=== PATIENT | male | born 1960 | race Caucasian/White ===

== ENCOUNTER 2019-05-04 03:34 | Inpatient (IN) | payer OTHER ==
[~2019-05-04] VITALS: Ht 172.7 cm; Wt 99.1 kg
[2019-05-04 03:37] VITALS: Ht 172.7 cm; Wt 99.1 kg
--- NOTE | 2019-05-04 03:58 | NUR ---
PT BIB SELF FOR C/O RLQ ABD PAIN. PT STS HE HAS A HISTORY OF SMALL BOWEL OBSTRUCTIONS AND REPORTS THE PAIN FEELS THE SAME. PT STS HIS LAST OBSTRUCTION WAS 3 YEARS AGO. PT REPORTS NAUSEA BUT NO VOMTITING. PT IS A/O X4. PT RESPS ARE E/U. PT IS ABLE TO AMBULATE WITH STEADY GAIT FROM ED LOBBY TO BED 4. AWAITING MSE
--- NOTE | 2019-05-04 04:33 | NUR ---
PT MEDICATED PER EMAR ORDERS. SEE ORDERS. PT PLACED ON ALL MONITORS. NO ACD NOTED
--- NOTE | 2019-05-04 04:40 | NUR ---
PT TAKEN TO CT VIA ED WHEELCHAIR BY TECH
[2019-05-04 04:44] LABS: BASOPHIL % 0.2 % (0-2); PLATELET COUNT 215 x10^3mcL (130-400); RED CELL DISTRIBUTION WIDTH 13.6 % (11.5-14.5)
--- NOTE | 2019-05-04 04:47 | NUR ---
PT RETURNED FROM CT WITH NO INCIDENCE
[2019-05-04 04:48] LABS: CALCIUM 9.2 mg/dL (8.5-10.1); CARBON DIOXIDE 25.5 mmol/L (21-32); CHLORIDE SERUM 104 mmol/L (98-107); GFR1 > 60 mL/min; GLUCOSE SERUM 135 mg/dL (74-106); POTASSIUM SERUM 4.4 mmol/L (3.5-5.1); SODIUM SERUM 139 mmol/L (136-145)
[2019-05-04 04:53] LABS: ALBUMIN 4.1 g/dL (3.4-5.0); ALKALINE PHOSPHATASE 72 U/L (46-116); ALT/SGPT 73 U/L (16-63); AST/SGOT 57 U/L (15-37); BILIRUBIN TOTAL 0.72 mg/dL (0.20-1.00); TOTAL PROTEIN, SERUM 8.2 g/dL (6.4-8.2)
[2019-05-04 05:10] LABS: LIPASE 133 IU/L (73-393)
--- NOTE | 2019-05-04 05:59 | NUR ---
PT MEDICATED PER EMAR ORDERS. PT STS " PLEASE STOP THE MEDICINE" WHILE PUSHING THE MORPHINE. PT ONLY RECIEVED 2 MG OF 4MG ORDER. PT PLACED IN TRANSDELUMBERG POSITION. PT IS ON ALL MONITORS. MADE AWARE
--- NOTE | 2019-05-04 06:11 | NUR ---
PORTABLE XRAY AT BEDSIDE TO COMFIRM PLACEMENT OF NGTUBE
--- NOTE | 2019-05-04 06:19 | NUR ---
PT REPORTS NO PAIN AT THIS TIME. PT VS ARE WITHIN NORMAL LIMITS. PT IS ABLE TO ANSWER ALL QUESTIONS APPROPRIATELY. PT IS A/O X4. PT RESPS ARE E/U. VISIBLE TRUNG CHEST RISE AND FALL NOTED. PT AT BEDSIDE. NO ACD NOTED
[2019-05-04] MEDS ORDERED: LIPI10 PO (06:29)
--- NOTE | 2019-05-04 07:10 | NUR ---
REPORT RECEIVED FROM WENDI CALDERON
--- NOTE | 2019-05-04 07:17 | NUR ---
GAVE PT REPORT TO DINORA ADAME, HE WILL NOW ASSUME PRIMARY CARE FOR THE PT
--- NOTE | 2019-05-04 07:22 | NUR ---
PATIENT RESTING AT BEDSIDE IN NAD
--- NOTE | 2019-05-04 07:37 | NUR ---
REPORT GIVEN TO WENDI FLORES
--- NOTE | 2019-05-04 07:50 | NUR ---
RECEIVED PT FROM ED VIA WU. C/O OF RLQ ABD. PAIN X1 DAY SINCE 6PM YESTERDAY WITH INTERMITTENT N/V. NGT TO RIGHT NARE. ABDOMEN ROUND/DISTENDED. BOWEL SOUNDS HYPOACTIVE. REPORTS LAST BM YESTERDAY, DESCRIBES HARD/FORMED. AA/OX4. FOLLOWS COMPLEX COMMANDS, RESPONDS TO VERBAL STIMULI. FACE SYMMETRICAL. SPEECH CLEAR. NO S/S OF ACUTE DISTRESS. MED-SURG. NPO (STRICT), NO SOB ON 2LNC. O2 SAT 100%. RR EVEN/UNLABORED. DENIES CHEST PAIN. CALM/COOPERATIVE. INSTRUCTED TO USE CALL LIGHT TO CALL FOR ASSISTANCE PRN. VERBALIZED UNDERSTANDING. BED IN LOW POSITION. CALL LIGHT WITHIN REACH. ORIENTED TO SURROUNDINGS. HOB ELEVATED. SUCTION AT BEDSIDE. WILL CONTINUE TO MONITOR.
[2019-05-04 08:28] VITALS: BP 145/95
--- NOTE | 2019-05-04 08:41 | NUR ---
RECEIVED TELEPHONE ORDERS FROM DR. ROMAN FOR NGT LOW-INTERMITTENT SUCTION AFTER SMALL BOWEL FOLLOW THROUGH IS COMPLETE. ALSO RECEIVED ORDER TO D/C SUBLIMAZE AND ORDER FOR TYLENOL 1000MG IVP Q 6HRS PRN, PHARMACY UNABLE TO VERIFY D/T UNAVAILABLE. PT DENIES PAIN AT THIS TIME. WILL CONTACT DR. ROMAN FOR ALTERNATE PAIN MEDICATION/MANAGEMENT.
--- NOTE | 2019-05-04 08:54 | NUR ---
PT TAKEN FOR SM. BOWEL FOLLOW THROUGH BY WHEELCHAIR. NO S/S OF ACUTE DISTRESS. NO N/V AT THIS TIME. NO COMPLAINT OF PAIN. VOID X1, OUTPUT 300CC CLEAR/YELLOW. IV WNL TO LAC, SALINE LOCKED.
--- NOTE | 2019-05-04 10:26 | NUR ---
PT BACK FROM SMALL BOWEL FOLLOW THROUGHT. PT EDUCATION PROVIDED: STRICT NPO, REMAIN UPRIGHT WITH HOB ELEVATED. VERBALIZED UNDERSTANDING. AA/OX4. COMPLAINT OF NAUSEA, GIVEN MED IVP. SEE NOV. NGT TO RIGHT NARE NOT CONNECTED TO SUCTION AT THIS TIME D/T SMALL BOWEL FOLLOW THROUGH. BED IN LOW POSITION. CALL LIGHT WITHIN REACH. WILL CONTINUE TO MONITOR.
[2019-05-04 12:07] VITALS: BP 152/93
--- NOTE | 2019-05-04 12:43 | NUR ---
RECEIVED PATIENT ALEXEY. PATIENT LAYING RIGHT SIDE IN BED A/O X4 ON 2L NC, NG TUBE PRESENT TO RIGHT NARE. PATIENT COMPLAINING OF SLIGHT NAUSEA. INSTRUCTED PATIENT TO SIT UP HIGHER IN BED DUE TO SB FOLLOW THROUGH. AWAITING FOLLOW UP XRAY FOR SMALL BOWEL FOLLOW THROUGH. CALL IGHT WITHIN REACH, FAMILY AT BEDSIDE. BED IN LOWEST POSITION
--- NOTE | 2019-05-04 13:18 | NUR ---
PATIENT VOMITED X1, LIGHT GREEN COLOR APPROX 5O MLS. PATIENT SITTING UP AT SIDE OF BED COMPLAINING OF NAUSEA AT THIS TIME. RADIOLOGY WAS CALLED AND XRAY WAS TAKEN, PER RECEP THE CONTRAST HAS MOVED THOUGH THE STOMACH AND FOLLOW UP XRAY IS STILL SCHEDULED FOR 1499. MEDICATED PATIENT WITH REGLAN PER NOV. ENCOURAGED TO REMAIN SITTING UP AT SIDE OF BED TO PROMOTE GASTRIC MOBILITY. CALL LIGHT WITHIN REACH, WILL CONTINUE TO MONITOR
--- NOTE | 2019-05-04 15:46 | NUR ---
PATIENT VOMITED X1 APPORX 200ML. MEDICATED WITH ZOFRAN. XRAYS HAD BEEN TAKEN FOR FINAL SMO FOLLOWUP. PATIENT CONNECTED TO LIS. PATIENT REPORTING DECREASE IN NAUSEA. WILL CONTINUE TO MONITOR. CALL LIGHT WITHIN REACH
[2019-05-04 16:23] VITALS: BP 138/97
--- NOTE | 2019-05-04 18:02 | NUR ---
PATIENT SEEN BY DR ROMAN AND UPDATED ON PLAN OF CARE. INSTRUCTED PATIENT TO ALERT STAFF OF SIGNS ON PAIN THIS COULD MEAN NEED FOR SURGERY. DR MEDINA LEFT PHONE NUMBER WITH STAFF ASKING TO BE KEPT UPDATED TO RESULTS TO LABS AND IF PATIENT IS FEELING PAIN. PATIENT STABLE AT THIS TIME WILL ENDORSE TO NIGHT NURSE
[2019-05-04 18:10] LABS: PLATELET COUNT 227 x10^3mcL (130-400); RED CELL DISTRIBUTION WIDTH 13.9 % (11.5-14.5)
[2019-05-04 18:12] LABS: BASOPHIL % 0 % (0-2)
--- NOTE | 2019-05-04 18:45 | NUR ---
UPDATED DR MEDINA ON LAB RESULTS. REPORTED THAT PATIENT IS AFEBRILE AND HR NOT ELEVATED. DR MEDINA ASKED TO MONITOR PATIENT AND REPORT IF THERE IS A CHANGE IN PATIENT VITAL SIGNS. WILL ENDORSE TO NIGHT NURSE
--- NOTE | 2019-05-04 19:32 | NUR ---
RECEIVED PT FROM PREVIOUS SHIFT. PT A/OX4. DENIES PAIN. DENIES SOB ON 2LNC. IV PATENT AND INFUSING D5 1/2NS AT 100ML/HR WITH NO S/S OF INFILTRATION. NGT TO LIS WITH BILE-COLORED OUTPUT. CALL LIGHT WITHIN REACH, BED IN LOW POSITION. WILL CONTINUE TO MONITOR,
[2019-05-04 20:50] VITALS: BP 153/97
--- NOTE | 2019-05-04 21:28 | NUR ---
NG TUBE CANISTER AND TUBING CHANGED AT THIS TIME. LOW INTERMITTENT SUCTION RESUMED.
--- NOTE | 2019-05-05 02:39 | NUR ---
PT RESTING IN NO ACUTE DISTRESS. RR EVEN AND UNLABORED. IV PATENT. CALL LIGHT WITHIN REACH, BED IN LOW POSITION. WILL CONTINUE TO MONITOR.
[2019-05-05 06:05] VITALS: BP 132/84
[2019-05-05 06:56] LABS: BASOPHIL % 0.1 % (0-2); PLATELET COUNT 228 x10^3mcL (130-400); RED CELL DISTRIBUTION WIDTH 13.7 % (11.5-14.5)
[2019-05-05 07:14] LABS: CARBON DIOXIDE 25.1 mmol/L (21-32); CHLORIDE SERUM 104 mmol/L (98-107); CREATININE SERUM 0.8 mg/dL (0.7-1.3); GFR1 > 60 mL/min; GLUCOSE SERUM 168 mg/dL (74-106); POTASSIUM SERUM 4.1 mmol/L (3.5-5.1); SODIUM SERUM 141 mmol/L (136-145)
--- NOTE | 2019-05-05 07:15 | NUR ---
SEEN IN BED AAOX4. NO RESP DISTRESS NOTED. BREATHING ON O2 2LPM N/C. DENIES ABDN PAIN STATED MILDLY NAUSEA. ABDN NOTED DISTENDED AND TENDER. STATED NO BM JUST BURPING. NGT TO RIGHT NARE TO LIS NOTED GREENISH GI CONTENT. KEPT NPO. IVF D5 1/2NS AT 100ML/HR TO LAC INFUSING WELL. CALL LIGHT PLACED WITHIN EASY REACH. SIDERAILS UP X2.
--- NOTE | 2019-05-05 07:55 | NUR ---
DOCTOR ADAM AT BEDSIDE FOR AM ROUND. PATIENT MADE AWARE OF PLAN OF CARE AND CURRENT CONDITION.
[2019-05-05 08:04] VITALS: BP 136/76
--- NOTE | 2019-05-05 08:20 | NUR ---
DOCTOR MERCY AT BEDSIDE DISCUSSED PLAN OF CARE AND MADE PATIENT AWARE OF CURRENT CONDITION. PATIENT AND HIS SPOUSE VERBALIZED UNDERSTANDING.
--- NOTE | 2019-05-05 08:57 | NUR ---
DISCONNECTED NGT TO LIS PRIOR TO PATIENT AMBULATTION ON THE HALLWAY. SPOUSE AND SON AT BEDSIDE.
[2019-05-05 11:51] VITALS: BP 123/63
[2019-05-05 16:25] VITALS: BP 142/93
--- NOTE | 2019-05-05 18:55 | NUR ---
NO ANY DISTRESS THROUGHOUT SHIFT. V/S STABLE, O2SAT 94% ON ROOM AIR. ENCURAGED TO AMBULATE, PATIENT MADE AWARE STATED WILL WALK ON THE HALLWAY AGAIN WHEN HIS SPOUSE GET HERE. NGT TO LIS 350 GREENISH GI CONTENT OUTPUT THROUGHOUT SHIFT. VOMITED X2, REFUSED ZOFRAN OFFERRED. D5 1/2NS AT 100ML/HR INFUSING WELL.
--- NOTE | 2019-05-05 19:23 | NUR ---
RECEIVED PT FROM PREVIOUS SHIFT. PT A/OX4. DENIES SOB ON RA. DENIES PAIN. C/O N/V. MEDICATED PRN PER EMAR. NG TO LIS WITH GREEN OUTPUT. IV PATENT AND INFUSING WELL WITH NO S/S OF INFILTRATION. CALL LIGHT WITHIN REACH, BED IN LOW POSITION. WILL CONTINUE TO MONITOR.
[2019-05-05 20:36] VITALS: BP 140/98
--- NOTE | 2019-05-06 00:01 | NUR ---
PT RESTING IN NO ACUTE DISTRESS. RR EVEN AND UNLABORED. CALL LIGHT WITHIN REACH, BED IN LOW POSITION. WILL CONTINUE TO MONITOR.
--- NOTE | 2019-05-06 04:11 | NUR ---
PT C/O NAUSEA. MEDICATED WITH ZOFRAN PRN PER EMAR. DECREASED OUTPUT NOTED IN NG TUBE COLLECTION CANISTER. AUSCULTATED FOR PLACEMENT WITH AIR BOLUS, INDICATING NG TUBE IS IN PLACE. ATTEMPTED TO CHECK RESIDUAL WITH SYRINGE, HOWEVER UNABLE TO DUE TO RESISTANCE. KUB ORDERED AT THIS TIME TO CHECK PLACEMENT.
[2019-05-06 05:54] VITALS: BP 144/85
[2019-05-06 07:00] LABS: CALCIUM 8.8 mg/dL (8.5-10.1); CARBON DIOXIDE 26.9 mmol/L (21-32); CHLORIDE SERUM 105 mmol/L (98-107); CREATININE SERUM 0.9 mg/dL (0.7-1.3); GFR1 > 60 mL/min; GLUCOSE SERUM 130 mg/dL (74-106); POTASSIUM SERUM 3.8 mmol/L (3.5-5.1); SODIUM SERUM 141 mmol/L (136-145)
[2019-05-06 07:07] LABS: BASOPHIL % 0.2 % (0-2); PLATELET COUNT 216 x10^3mcL (130-400); RED CELL DISTRIBUTION WIDTH 13.9 % (11.5-14.5)
--- NOTE | 2019-05-06 07:15 | NUR ---
SEEN RESTING WITH EYES CLOSED. HOB ELEVATED AT 45DEG. DENIES ABDN PAIN. NGT TO LIS. ABDN DISTENDED AND FIRM. KEPT NPO. STATED MILD NAUSEA, REFUSED ZOFRAN AT THIS TIME. IVF D5 1/2NS AT 100ML/HR TO LAC INFUSING WELL. ENCOURAGED TO AMBULATE TODAY, PATIENT VERBALIZED UNDERSTANDING. CALL LIGHT PLACED WITHIN EASY REACH. SIDERAILS UP X2.
--- NOTE | 2019-05-06 07:30 | NUR ---
KUB RESULT THIS AM SHOWN NGT TERMINATES IN THE GASTRIC BODY. MANUAL NGT IRRIGATION DONE NOTED 350 ML GREENISH STICKY GI CONTENT OUTPUT. RECONNECTED TO LIS.
[2019-05-06 08:04] VITALS: BP 136/88
--- NOTE | 2019-05-06 08:30 | NUR ---
DOCTOR MADRID AT BEDSIDE FOR AM ROUND. DOCTOR MADRID MADE AWARE OF WBC 16.1. NOTED NEW ORDERS MADE. WILL BE CARRIED OUT.
--- NOTE | 2019-05-06 11:00 | NUR ---
IV TO LAC LEAKING, CATHETER REMOVED WITH CATHETER INTACT, DRSG APPLIED. NEW CATHETER#22 INSERTED TO LFA WITH GOOD BLD RETURNED AND FLUSHED WELL, IVF D5 1/2NS INFUSING WELL.
[2019-05-06 11:47] VITALS: BP 143/92
--- NOTE | 2019-05-06 12:00 | NUR ---
DISCONNECTED NGT TO LIS. PATIENT AMBULATING ACCOMPANIED BY HIS SPOUSE. NO ANY DISTRESS NOTED.
--- NOTE | 2019-05-06 13:30 | NUR ---
MANUAL NGT IRRIGATION DONE PER PATIENT'S REQUESTED WITH 300 GREENISH GI CONTENT OUTPUT, RECONNECTED NGT TO CONTINUE LIS. DENIES PAIN. STATED PASSED GAS X1. DENIES HAVING ANY BM. VOIDS FREELY. AMBULATORY WELL ON THE HALLWAY. IVF D5 1/2 NS AT 70ML/HR TO LFA IV SITE INFUSING WELL.
[2019-05-06 16:31] VITALS: BP 131/80
--- NOTE | 2019-05-06 17:12 | NUR ---
PATIENT AMBULATED ON THE HALLWAY X2 THROUGHOUT SHIFT. NO COMPLAINTS OF PAIN OR NAUSEA. BRP. IVF D5 1/2 NS CONTINUED AT 70ML/HR.
--- NOTE | 2019-05-06 18:00 | NUR ---
DISCONNECTED NGT TO LIS PER PATIENT'S REQUESTED. NOTED LIGHT BROWISH GI CONTENT 300ML. DENIES PAIN OR NAUSEA.
--- NOTE | 2019-05-06 18:19 | NUR ---
SEEN AMBULATORY ON THE HALLWAY ASSISTED BY HIS SPOUSE.
--- NOTE | 2019-05-06 19:27 | NUR ---
RECEIVED PT FROM PREVIOUS SHIFT. PT A/OX4. DENIES CHEST PAIN/PRESSURE. DENIES SOB ON RA. NG TUBE TO R NARE ON LIS WITH GREEN OUTPUT. FAMILY AT BEDSIDE. IV PATENT AND INFUSING WELL WITH NO S/S OF INFILTRATION. CALL LIGHT WITHIN REACH, BED IN LOW POSITION. WILL CONTINUE TO MONITOR.
[2019-05-06 21:23] VITALS: BP 130/80
--- NOTE | 2019-05-06 22:01 | NUR ---
NG TUBE SUCTION CANISTER AND TUBING CHANGED AT THIS TIME. LIS RESUMED WITH GREEN OUTPUT. PT DENIES N/V. WILL CONTINUE TO MONITOR.
--- NOTE | 2019-05-07 00:22 | NUR ---
PT RESTING IN NO ACUTE DISTRESS. RR EVEN AND UNLABORED. CALL LIGHT WITHIN REACH, BED IN LOW POSITION. WILL CONTINUE TO MONITOR.
[2019-05-07 06:07] VITALS: BP 143/82
[2019-05-07 06:15] LABS: BASOPHIL % 0.3 % (0-2); PLATELET COUNT 199 x10^3mcL (130-400); RED CELL DISTRIBUTION WIDTH 13.9 % (11.5-14.5)
[2019-05-07 06:35] LABS: CALCIUM 8.5 mg/dL (8.5-10.1); CARBON DIOXIDE 32.6 mmol/L (21-32); CHLORIDE SERUM 106 mmol/L (98-107); CREATININE SERUM 0.9 mg/dL (0.7-1.3); GFR1 > 60 mL/min; GLUCOSE SERUM 103 mg/dL (74-106); POTASSIUM SERUM 3.3 mmol/L (3.5-5.1); SODIUM SERUM 146 mmol/L (136-145)
--- NOTE | 2019-05-07 08:04 | NUR ---
RECEIVED PATIENT FROM NIGHT NURSE. AWAKE, ALERT AND ORIENTED. DENEIS ANY PAIN OR NAUSEA. NG TUBE TO LOW INTERMITTENT SUCTION WITH LIGHT BROWN ASPIRATE IN TUBING. IV INFUSING D5 1/2 NS AT 70 ML/HR. NPO.
[2019-05-07 08:08] VITALS: BP 129/76
--- NOTE | 2019-05-07 09:31 | NUR ---
AT 0845 - SEEN BY DR MADRID. NEW ORDERS RECEIVED FOR KUB AND K-RIDER. AT 0915 - SEEN BY DR MEDINA. NEW ORDERS RECEIVED. OK FOR PATIENT TO HAVE ICE CHIPS WHILE ON NG TUBE SUCTION.
--- NOTE | 2019-05-07 10:46 | NUR ---
COMMENCED 20 MEQ K-RIDER FOR K+ LEVEL OF 3.3. AT BEDSIDE.
--- NOTE | 2019-05-07 14:33 | NUR ---
PATIENT AMBULATING IN HALLWAY. K-RIDER HAS BEEN COMPLETED.
[2019-05-07 15:59] VITALS: BP 127/80
--- NOTE | 2019-05-07 18:16 | NUR ---
VSS. AFEBRILE. NO C/O PAIN. NG REMAINS ON LOW INTERMITTENT SUCTION WITH DARK BROWN ASPIRATE - TOTAL OF 800 ML THIS SHIFT. IV INFUSING D5 1/2 NS AT 70 ML/HR. WILL ENDORSE CARE TO NIGHT NURSE.
[2019-05-07 20:20] VITALS: BP 134/84
--- NOTE | 2019-05-07 20:24 | NUR ---
PT. AWAKE, ALERT, ORIENTED X4, DENIES HEADACHE OR DIZZINESS. BREATH SOUNDS CLEAR THROUGHOUT LUNG ROACH, NO SOB NOTED. PT. ON RA. NGT TO RT. NARE, TO LIS, IN-SITU. ABD. SOFT AND ROUND, BOWEL SOUNDS ACTIVE. DENIES ABD. PAIN, DENIES NAUSEA. NO EDEMA TO EXTREMITIES. PEDAL PULSES STRONG TRUNG. IVF INFUSING WELL, SITE INTACT. CALL LIGHT WITHIN REACH.
--- NOTE | 2019-05-08 00:14 | NUR ---
PT. WALKED A FEW ROUNDS AROUND MST FLOOR, TOLERATED WELL. NGT HOOKED BACK UP TO LIS, IV RE HOOKED. PT. BACK TO BED. NO COMPLAINTS AT THIS TIME. CALL LIGHT PLACED WITHIN REACH.
--- NOTE | 2019-05-08 05:06 | NUR ---
PT. STILL DOZING AT THIS TIME. NG TUBE REMAINS IN-SITU TO RT. ROSENDO, LIS. BROWNISH DRAINAGE NOTED. TOTAL 300ML OUTPUT THIS SHIFT.
[2019-05-08 06:03] VITALS: BP 136/86
[2019-05-08 06:35] LABS: BASOPHIL % 0.4 % (0-2); PLATELET COUNT 205 x10^3mcL (130-400); RED CELL DISTRIBUTION WIDTH 13.6 % (11.5-14.5)
[2019-05-08 06:53] LABS: CALCIUM 8.3 mg/dL (8.5-10.1); CARBON DIOXIDE 30.2 mmol/L (21-32); CHLORIDE SERUM 106 mmol/L (98-107); GFR1 > 60 mL/min; GLUCOSE SERUM 99 mg/dL (74-106); POTASSIUM SERUM 3.3 mmol/L (3.5-5.1); SODIUM SERUM 144 mmol/L (136-145)
--- NOTE | 2019-05-08 07:00 | NUR ---
RECEIVED REPORT FROM CHARLIE SCOTT RN, PT IN NO ACUTE RESP DISTRESS
--- NOTE | 2019-05-08 07:10 | NUR ---
PT IN BED, IN NO ACUTE RESP DISTRESS, NO FACIAL DROOP/SLURRED SPEECH, PERRLA, NO REDNESS/DRAINGE, RESP EVEN AND NON-LABORED, CHEST RISE SYMMETRICALLY, MEDSURG, ABD SOFT AND NON-TENDER TO TOUCH, BS ACTIVE X 4, AMBULATORY, CONTINENT, BRP, PALP PULSES, CAP REFILL < 2 SECS, SKIN W.D.C, DENIED PAIN/DISCOMFORT/PRESSURE, DENIED N/V/D/DISSINESS, IV PATENT AND INFUSING WELL, NGT TO (R) NARE PATENT AND SUCTION W/ NO OBSTRUCTION, NOTED 50CC IN COLLECTING CHAMBER, DARK BROWN, THIN CONSISTENCY, ALL NEEDS ADDRESSED AT THIS TIME, SAFETY PROTOCOL FOLLOWED, CONTINUE TO MONITOR
[2019-05-08 08:42] VITALS: BP 138/85
--- NOTE | 2019-05-08 09:36 | NUR ---
PT IN NO ACUTE RESP DISTRESS, AM MED GIVEN PER MD ORDERED VIA EMAR, TAKEN WELL, NO ASE NOTED AT THIS TIME, SAFETY MONITOR, CONTINUE TO MONITOR
--- NOTE | 2019-05-08 12:54 | NUR ---
PT ASSISTED TO BATHROOM, SMALL BM X 1 NOTED, SOFT, LIGHT YELLOW, REPORTED NO DISCOMFORT/PAIN AT THIS TIME, PT IN NO ACUTE DISTRESS, ASSISTED BACK TO BED, CONTINUE TO MONITOR
--- NOTE | 2019-05-08 14:16 | NUR ---
PT SLEEPING IN BED, SIDE LYING, IN NO ACUTE RESP DISTRESS, SAFETY PROTOCOL FOLLOWED, CONTINUE TO MONITOR
--- NOTE | 2019-05-08 15:46 | NUR ---
PT REFUSED IV INSERTION FOR TPN, SAID ORDERED SOUP FOR DINNER, MADE AWARE, CHARGE NURSE ZENOBIA MADE AWARE, MD SAID SAID NPO 1 MORE DAY FOR OBSERVATION, PT MADE AWARE, STILL REFUSED IV INSERTION FOR TPN, AND CHARGE NURSE ZENOBIA MADE AWARE, FAMILY AT [facility] AWARE, CONTINUE TO MONITOR
[2019-05-08 16:00] VITALS: BP 140/95
--- NOTE | 2019-05-08 18:11 | NUR ---
PT RESTING IN BED W/ EYE CLOSED, AT BEDSIDE, IN NO ACUTE RESP DISTRESS, VERBAL, AMBULATORY, BM X 2 WITHIN AM SHIFT, SOFT, SMALL, ABD SOFT AND NON-TENDERED TO TOUCH, NO FACIAL DROOP/SLUURED SPEECH NOTED, DENIED PAIN/DISCOMFORT, DENIED N/V/D, IV PATENT AND INFUSING WELL, ALL NEEDS ADDRESSED AT THIS TIME, SAFETY PROTOCOL FOLLOWED, WILL ENDORSE TO ONCOMING RN
--- NOTE | 2019-05-08 19:44 | NUR ---
PT. AWAKE, ALERT, SITTING UP IN BED. AT BEDSIDE. ORIENTED X4. DENIES HEADACHE OR DIZZINESS. BREATH SOUNDS CLEAR THROUGHOUT LUNG ROACH, RESP. EVEN, UNLABORED. NO SOB NOTED. PT. ON RA. NGT TO RT. NARE, IN-SITU TO LOW INTERMITTENT SUCTION, SCANT AMOUNT OF BROWNISH DRAINAGE NOTED THUS FAR. ABD. SOFT AND ROUND, BOWEL SOUNDS ACTIVE. DENIES ABD. PAIN, DENIES NAUSEA. IVF NS INFUSING WELL TO RFA, SITE INTACT. NO EDEMA TO BLE. PEDAL PULSES STRONG BLE. CALL LIGHT WTIHIN REACH.
[2019-05-08 20:24] VITALS: BP 134/85
--- NOTE | 2019-05-09 00:15 | NUR ---
PT. 'S IV SITE TO RFA INFILTRATED, PPN INFUSION STOPPED AND LINE TRANSFERRED TO LFA. LFA SITE INTACT. WARM COMPRESS GIVEN APPLIED TO RFA. WILL MONITOR.
[2019-05-09 05:31] VITALS: BP 142/89
[2019-05-09 07:15] LABS: CALCIUM 8.7 mg/dL (8.5-10.1); CARBON DIOXIDE 28.1 mmol/L (21-32); CHLORIDE SERUM 105 mmol/L (98-107); CREATININE SERUM 0.9 mg/dL (0.7-1.3); GFR1 > 60 mL/min; GLUCOSE SERUM 113 mg/dL (74-106); POTASSIUM SERUM 3.5 mmol/L (3.5-5.1); SODIUM SERUM 143 mmol/L (136-145)
--- NOTE | 2019-05-09 07:15 | NUR ---
RECEIVED PT FROM NOC WENDI GUERRA. PT LAYING IN BED WITH NGT TO RIGHT NARE, PATENT, NGT TO LOW INTERMITTENT SUCTION, GREEN DISCHARGE NOTED. SUCTION IN PLACE TO BEDSIDE. DENIES ABD. PAIN AT THIS TIME. NO N/V. NO SOB ON ROOM AIR. NO COMPLAINT OF PAIN. IV WNL TO LFA, NO REDNESS, NO SWELLING, NO INFILTRATION. PATENT AND FLUSHES WELL. PPN RUNNING AT 70CC/HR. SITE WNL TO LFA. BED IN LOW POSITION. CALL LIGHT WITHIN REACH. WILL CONTINUE TO MONITOR. NPO.
[2019-05-09 08:03] VITALS: BP 125/80
--- NOTE | 2019-05-09 09:40 | NUR ---
NGT REMOVED PER PHYSICIAN ORDER. PT TOLERATED WELL. NO N/V. NO ABD. PAIN. CALM/COOPERATIVE. NO S/S OF ACUTE DISTRESS. WILL CONTINUE TO MONITOR.
[2019-05-09 12:07] VITALS: BP 122/83
--- NOTE | 2019-05-09 12:08 | NUR ---
PT RESTING IN BED WITH BOTH EYES CLOSED. EASILY AROUSABLE TO VERBAL STIMULI, NO S/S OF ACUTE DISTRESS. NO SOB ON ROOM AIR. TOLERATING CLEAR LIQUIDS WELL. DENIES N/V. NO ABD. PAIN. AA/OX4. CALM/COOPERATIVE. IV WNL, PPN RUNNING AT 70CC/HR. BLOOD SUGAR WNL. BED IN LOW POSITION. CALL LIGHT WITHIN REACH. WILL CONTINUE TO MONITOR.
[2019-05-09 15:39] VITALS: BP 122/83
[2019-05-09 15:59] VITALS: BP 122/83
[2019-05-09 16:18] VITALS: BP 131/92
--- NOTE | 2019-05-09 17:48 | NUR ---
PT TAKEN TO LOBBY BY KAMRYN ROBLEDO. AWAKE, ALERT, ORIENTED X4. AMBULATORY WITH FULL ROM, GAIT STEADY. DISCHARGED TO HOME. TOLERATING CLEAR LIQUID DIET WELL FOR DINNER. NO N/V. NO ABD. PAIN. NO SOB ON ROOM AIR. NO CHEST PAIN. CALM/COOPERATIVE. BELONGINGS WITH PATIENT. WORK NOTE WITH PATIENT. DISCHARGE EDUCATION PROVIDED TO PATIENT. INSTRUCTED TO FOLLOW UP WITH PCP AT [facility] APPT. VERBALIZED UNDERSTANDING. IV REMOVED FROM LFA, NO REDNESS, NO SWELLING, NO INFILTRATION. CATHETER IN TACT, PRESSURE APPLIED. SITE WNL. ACCOMPANIED BY .
== END 2019-05-09 17:45 | disposition home or self-care (01) | DRG 390 ==
LOC: ED 03:34 → MU 05:56
PROVIDERS: Emergency Medicine; Internal Medicine Pulmonary Disease; Surgery; ADMIT Internal Medicine Pulmonary Disease
PROC: 0D9670Z Drainage of Stomach with Drainage Device, Via Natural or Artificial Opening (ICD-10-PCS; principal; 2019-05-04)
DX: K56.609 Unspecified intestinal obstruction, unspecified as to partial versus complete obstruction (principal); E78.5 Hyperlipidemia, unspecified; E66.01 Morbid (severe) obesity due to excess calories; Z88.6 Allergy status to analgesic agent; Z88.5 Allergy status to narcotic agent; Z68.32 Body mass index [BMI] 32.0-32.9, adult
CPT/HCPCS: 82962; G0378; J0500; J0696; J1650; J2270; J2310; J2405; J2765; J3480; J3490; J7030; J7131; Q0092; Q9967